=== PATIENT | male | born 1990 | race Native Hawaiian/Other Pacific Islander ===

== ENCOUNTER 2017-09-26 21:28 | Emergency (ER) | payer BC, OTHER ==
[~2017-09-26 21:28] MED LIST: AMOX875T20 PO; LORT5TAB PO; Z.0.NO CURRENT MEDS
[2017-09-26 21:41] VITALS: BP 155/85; PULSE 86; RESP 18; TEMP 98.8; O2SAT 100
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
[2017-09-26] MEDS ORDERED: KETOROLAC TROMETHAMINE 60 MG/2 ML (IM) VIAL IM ONE (22:00)
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
[2017-09-26] MEDS ORDERED: CYCL10TA PO (23:19)
[2017-09-26] MEDS ORDERED: NAPR500T2 PO (23:19)
== END 2017-09-26 23:28 | disposition home or self-care (01) ==
LOC: NEPD 21:28
DX: S39.012A Strain of muscle, fascia and tendon of lower back, initial encounter (principal); F41.9 Anxiety disorder, unspecified; V47.5XXA Car driver injured in collision with fixed or stationary object in traffic accident, initial encounter
CPT/HCPCS: 71045; 72050; 72072; 72110; 96372; 99284; J1885